=== PATIENT | female | born 1970 | race Caucasian/White ===

== ENCOUNTER 2018-12-05 02:06 | Observation (INO) ==
[2018-12-05 02:26] LABS: Basophils # 0.1 K/mcL (0.0-0.2); Basophils % 0.5 %; Eosinophils # 0.3 K/mcL (0.0-0.6); Hematocrit 34.6 % (35.3-44.9); Hemoglobin 10.9 g/dL (11.5-15.4); Immature Granulocytes % 0.8 % (0-4); Lymphocytes # 2.2 K/mcL (0.6-4.6); Lymphocytes % 16.6 %; Mean Corpuscular HGB Conc 31.5 g/dL (31.6-35.5); Mean Corpuscular Hemoglobin 27.7 pg (28.0-33.3); Mean Corpuscular Volume 87.8 fL (83.0-100.0); Mean Platelet Volume 9.7 fL (9.4-12.4); Monocytes # 0.7 K/mcL (0.0-1.3); Monocytes % 5.2 %; Neutrophils # 9.8 K/mcL (1.6-8.9); Platelet Count 288 K/mcL (140-400); Red Blood Count 3.94 M/mcL (3.82-4.97); Red Cell Distribution Width 13.4 % (11.5-14.5); Segmented Neutrophils % 74.9 %; White Blood Count 13.1 K/mcL (4.3-11.1)
[2018-12-05 02:35] LABS: Activated Partial Thrombo Time 30.4 Seconds (26.0-36.0)
[2018-12-05 02:43] LABS: BUN/Creatinine Ratio 17 (6-26); Blood Urea Nitrogen 18 mg/dL (6-20); Calcium 8.7 mg/dL (8.6-10.3); Carbon Dioxide 24 mEq/L (23-29); Chloride 104 mEq/L (98-107); Glucose 238 mg/dL (70-105); Osmolality,Calculated 288 (280-300); Potassium 4.1 mEq/L (3.5-5.1); Sodium 134 mEq/L (136-145); eGFR For African Americans > 60 (> 60); eGFR For Non-African Americans 55 (> 60)
[2018-12-05 02:44] LABS: Troponin I 0.03 ng/mL (< 0.04)
[2018-12-05] MEDS ORDERED: 0.9 % Sodium Chloride 500 ML IVC ONE (02:50)
[2018-12-05] MEDS ORDERED: 0.9 % Sodium Chloride 1,000 ML IVC SCH (03:00)
[2018-12-05] MEDS ORDERED: Dextrose Gel 15 GM/37.5 ML TUBE PO PRN ×4 (03:30→04:50)
[2018-12-05] MEDS ORDERED: *HR* Dextrose 50 % in Water (Syg) 50 ML SYRINGE IVP PRN ×2 (03:30→04:50)
[2018-12-05] MEDS ORDERED: D5% in Water 1,000 ML IVC PRN ×2 (03:30→04:50)
[2018-12-05] MEDS ORDERED: Insulin LISPRO 300 UNITS/3 ML VIAL SQ SCH ×3 (07:30→21:00)
[2018-12-05] MEDS: Aspirin Enteric Coated 81 MG Tablet PO SCH (08:02)
[2018-12-05] MEDS: Insulin LISPRO 300 UNITS/3 ML VIAL SQ SCH ×3 (08:03→16:42)
[2018-12-05 09:54] LABS: Estimated Average Glucose 217 mg/dl
[2018-12-05] MEDS: 0.9 % Sodium Chloride 1,000 ML IVC SCH ×2 (12:11→14:16)
[2018-12-05] MEDS ORDERED: *HR* Digoxin 0.5 MG/2 ML AMPUL IVP ONE (13:53)
[2018-12-05] MEDS: Metoprolol XL (24 HR) Succ 50 MG TAB.ER.24H PO SCH (15:20)
[2018-12-05] MEDS ORDERED: *HR* Rivaroxaban 10 MG TABLET PO SCH (17:00)
[2018-12-05] MEDS: *HR* Ticagrelor 90 MG TABLET PO SCH (20:01)
[2018-12-05] MEDS: Acetaminophen 325 MG TABLET PO PRN (23:42)
[2018-12-05] MEDS: Gabapentin 300 MG CAPSULE PO SCH (23:42)
[2018-12-06] MEDS: Benzonatate 100 MG CAPSULE PO PRN ×3 (04:49→14:39)
[2018-12-06 06:28] LABS: Basophils % 0.3 %; Eosinophils # 0.2 K/mcL (0.0-0.6); Eosinophils % 1.8 %; Hematocrit 30.5 % (35.3-44.9); Hemoglobin 9.6 g/dL (11.5-15.4); Immature Granulocytes % 0.5 % (0-4); Lymphocytes # 1.8 K/mcL (0.6-4.6); Lymphocytes % 15.2 %; Mean Corpuscular HGB Conc 31.5 g/dL (31.6-35.5); Mean Corpuscular Hemoglobin 27.7 pg (28.0-33.3); Mean Corpuscular Volume 87.9 fL (83.0-100.0); Monocytes # 0.5 K/mcL (0.0-1.3); Monocytes % 4.2 %; Neutrophils # 9.4 K/mcL (1.6-8.9); Platelet Count 236 K/mcL (140-400); Red Blood Count 3.47 M/mcL (3.82-4.97); Red Cell Distribution Width 13.8 % (11.5-14.5)
[2018-12-06 06:51] LABS: Calcium 8.2 mg/dL (8.6-10.3); Potassium 4.1 mEq/L (3.5-5.1)
[2018-12-06] MEDS: Insulin LISPRO 300 UNITS/3 ML VIAL SQ SCH ×2 (08:12→12:11)
[2018-12-06] MEDS: Aspirin Enteric Coated 81 MG Tablet PO SCH (08:14)
[2018-12-06] MEDS: Acetaminophen 325 MG TABLET PO PRN (08:14)
[2018-12-06] MEDS: Metoprolol XL (24 HR) Succ 50 MG TAB.ER.24H PO SCH (08:15)
[2018-12-06] MEDS ORDERED: *HR* Dextrose 50 % in Water (Vial) 50 ML VIAL IVP PRN (09:15)
[2018-12-06 09:44] LABS: Folate 4.4 ng/mL (3.0-16.0)
[2018-12-06] MEDS: Gabapentin 300 MG CAPSULE PO SCH (09:54)
[2018-12-06] MEDS: *HR* Ticagrelor 90 MG TABLET PO SCH (09:54)
[2018-12-06 11:41] VITALS: BP 112/54
[2018-12-06] MEDS ORDERED: Cyanocobalamin (B-12) 1,000 MCG/ML VIAL IM ONE (14:26)
== END 2018-12-06 15:15 | disposition home or self-care (01) ==
LOC: INPPIK 02:06 → EMEROOPIK 02:06 → INPPIK 04:35
PROVIDERS: ADMIT Internal Medicine; ATTEND Internal Medicine

== ENCOUNTER 2019-12-07 10:40 | Observation (INO) ==
[2019-12-07] MEDS ORDERED: Ondansetron 4 MG/2 ML VIAL IVP ONE (10:43)
[2019-12-07] MEDS ORDERED: Nitroglycerin 1 INCH/GM PACKET TP ONE (10:43)
[2019-12-07] MEDS ORDERED: 0.9 % Sodium Chloride 500 ML IVC ONE (10:43)
[2019-12-07] MEDS ORDERED: Aspirin 81 MG TAB.CHEW PO ONE (10:43)
[2019-12-07] MEDS ORDERED: *HR* LORazepam 2 MG/ML VIAL IVP ONE (10:44)
[2019-12-07 10:59] LABS: Basophils # 0.1 K/mcL (0.0-0.2); Basophils % 0.5 %; Eosinophils # 0.1 K/mcL (0.0-0.6); Eosinophils % 0.8 %; Hematocrit 29.6 % (35.3-44.9); Hemoglobin 9.4 g/dL (11.5-15.4); Immature Granulocytes % 0.3 % (0-4); Lymphocytes # 1.1 K/mcL (0.6-4.6); Lymphocytes % 11.2 %; Mean Corpuscular HGB Conc 31.8 g/dL (31.6-35.5); Mean Corpuscular Hemoglobin 29.3 pg (28.0-33.3); Mean Corpuscular Volume 92.2 fL (83.0-100.0); Mean Platelet Volume 9.3 fL (9.4-12.4); Monocytes # 0.5 K/mcL (0.0-1.3); Neutrophils # 7.8 K/mcL (1.6-8.9); Platelet Count 303 K/mcL (140-400); Red Blood Count 3.21 M/mcL (3.82-4.97); Red Cell Distribution Width 13.5 % (11.5-14.5); Segmented Neutrophils % 82.2 %; White Blood Count 9.5 K/mcL (4.3-11.1)
[2019-12-07 11:15] LABS: Albumin 2.7 g/dL (3.5-5.7); Albumin/Globulin Ratio 0.8 (1.1-2.2); BUN/Creatinine Ratio 13 (6-26); Bilirubin,Indirect 0.2 mg/dL (0.0-1.0); Bilirubin,Total 0.2 mg/dL (0.3-1.0); Blood Urea Nitrogen 23 mg/dL (6-20); Calcium 8.4 mg/dL (8.6-10.3); Carbon Dioxide 24 mEq/L (23-29); Chloride 108 mEq/L (98-107); Globulin 3.5 g/dL (2.4-3.5); Glucose 195 mg/dL (70-105); Osmolality,Calculated 297 (280-300); Potassium 4.3 mEq/L (3.5-5.1); Sodium 139 mEq/L (136-145); Total Protein 6.2 g/dL (6.4-8.9); eGFR For African Americans 38 (> 60); eGFR For Non-African Americans 32 (> 60)
[2019-12-07 11:16] LABS: Troponin I < 0.03 ng/mL (< 0.04)
[2019-12-07 11:17] LABS: Activated Partial Thrombo Time 27.3 Seconds (26.0-36.0)
[2019-12-07 11:18] LABS: Prothrombin Time 11.8 Seconds (9.4-12.1)
[2019-12-07] MEDS ORDERED: Ondansetron ODT 4 MG TAB.RAPDIS SL PRN (11:59)
[2019-12-07] MEDS ORDERED: Acetaminophen 325 MG TABLET PO PRN (11:59)
[2019-12-07] MEDS ORDERED: Naloxone 0.4 MG/ML INJ IVP PRN (11:59)
[2019-12-07] MEDS ORDERED: Perflutren Lipid Microsphere 1.3 ML in 0.9 % Sodium Chloride 8.7 ML IVP PRN (15:00)
[2019-12-07] MEDS ORDERED: Dextrose Gel 15 GM/37.5 ML TUBE PO PRN ×2 (15:44)
[2019-12-07] MEDS ORDERED: *HR* Dextrose 50 % in Water (Vial) 50 ML VIAL IVP PRN (15:44)
[2019-12-07] MEDS ORDERED: D5% in Water 1,000 ML IVC PRN (15:44)
[2019-12-07] MEDS: *HR* Enoxaparin 40 MG/0.4 ML SYRINGE SQ SCH (18:47)
[2019-12-07] MEDS: Insulin LISPRO 300 UNITS/3 ML VIAL SQ SCH (18:47)
[2019-12-07 21:10] LABS: Estimated Average Glucose 157 mg/dl
[2019-12-07 23:32] LABS: Amphetamine Screen,Urine Negative ng/mL (Cutoff=1000); Barbiturate Screen,Urine Negative ng/mL (Cutoff=200); Benzodiazepines Screen,Urine Negative ng/mL (Cutoff=200); Cannabinoid Screen,Urine Negative ng/mL (Cutoff = 50); Cocaine Screen,Urine Negative ng/mL (Cutoff= 300); Opiate Screen,Urine Negative ng/mL (Cutoff=300); Phencyclidine Screen,Urine Negative ng/mL (Cutoff=25)
[2019-12-08 00:37] LABS: Hematocrit 25.9 % (35.3-44.9); Hemoglobin 8.4 g/dL (11.5-15.4); Mean Corpuscular HGB Conc 32.4 g/dL (31.6-35.5); Mean Corpuscular Hemoglobin 29.7 pg (28.0-33.3); Mean Corpuscular Volume 91.5 fL (83.0-100.0); Mean Platelet Volume 9.4 fL (9.4-12.4); Platelet Count 258 K/mcL (140-400); Red Blood Count 2.83 M/mcL (3.82-4.97); Red Cell Distribution Width 13.5 % (11.5-14.5); White Blood Count 8.2 K/mcL (4.3-11.1)
[2019-12-08 00:56] LABS: Calcium 8.1 mg/dL (8.6-10.3); Potassium 4.4 mEq/L (3.5-5.1)
[2019-12-08] MEDS: *HR* Enoxaparin 40 MG/0.4 ML SYRINGE SQ SCH (05:48)
[2019-12-08 06:28] VITALS: BP 136/75
[2019-12-08] MEDS: Insulin LISPRO 300 UNITS/3 ML VIAL SQ SCH ×2 (07:45→12:07)
[2019-12-08] MEDS ORDERED: Furosemide 40 MG TABLET PO ONE (10:30)
[2019-12-08] MEDS ORDERED: Nicotine 14 MG PATCH.TD24 TD SCH (11:08)
[2019-12-08] MEDS ORDERED: Metoprolol XL (24 HR) Succ 50 MG TAB.ER.24H PO SCH (11:15)
[2019-12-08] MEDS ORDERED: Aspirin Enteric Coated 81 MG Tablet PO SCH (11:15)
[2019-12-08] MEDS ORDERED: Budesonide/Formoterol 80/4.5 1 PUFF INH IH SCH (11:15)
[2019-12-08] MEDS ORDERED: Loratadine 10 MG TABLET PO SCH (11:15)
[2019-12-08] MEDS ORDERED: *HR* Glimepiride 2 MG TABLET PO SCH (11:15)
[2019-12-08] MEDS ORDERED: Gabapentin 300 MG CAPSULE PO SCH (15:00)
[2019-12-09] MEDS ORDERED: Furosemide 20 MG TABLET PO SCH (09:00)
== END 2019-12-08 15:45 | disposition home or self-care (01) ==
LOC: INPPIK 10:40 → EMEROOPIK 10:40 → INPPIK 13:39
PROVIDERS: ADMIT Family Medicine; ATTEND Family Medicine

== ENCOUNTER 2020-01-02 17:16 | Observation (INO) ==
[2020-01-02] MEDS ORDERED: *HR* Dextrose 50 % in Water (Vial) 50 ML VIAL ONE (17:23)
[2020-01-02] MEDS ORDERED: *HR* Dextrose 50 % in Water (Syg) 50 ML SYRINGE IVP ONE (17:24)
[2020-01-02 19:12] LABS: Basophils % 0.1 %; Eosinophils % 0.2 %; Hemoglobin 11.4 g/dL (11.5-15.4); Immature Granulocytes % 0.3 % (0-4); Lymphocytes # 0.5 K/mcL (0.6-4.6); Lymphocytes % 3.3 %; Mean Corpuscular HGB Conc 32.6 g/dL (31.6-35.5); Mean Corpuscular Hemoglobin 29.5 pg (28.0-33.3); Mean Corpuscular Volume 90.7 fL (83.0-100.0); Mean Platelet Volume 10.3 fL (9.4-12.4); Monocytes # 0.6 K/mcL (0.0-1.3); Monocytes % 3.6 %; Neutrophils # 14.5 K/mcL (1.6-8.9); Platelet Count 365 K/mcL (140-400); Red Blood Count 3.86 M/mcL (3.82-4.97); Red Cell Distribution Width 12.8 % (11.5-14.5); Segmented Neutrophils % 92.5 %; White Blood Count 15.7 K/mcL (4.3-11.1)
[2020-01-02 19:14] LABS: Bilirubin,Urine Negative (Negative); Blood,Urine Moderate (Negative); Clarity,Urine Clear (Clear); Color,Urine Yellow (Yellow); Glucose,Urine (UA) Normal (Normal); Ketones,Urine Negative (Negative); Leukocyte Esterase,Urine Negative (Negative); Nitrite,Urine Negative (Negative); Protein,Urine >=300 mg/dL (Neg-Trace); Specific Gravity,Urine 1.025 (1.010-1.025); Urobilinogen,Urine Normal (Normal)
[2020-01-02 19:30] LABS: RBC,Urine 15-30 per hpf (0-3)
[2020-01-02] MEDS ORDERED: D10% in Water 500 ML IVC SCH (19:30)
[2020-01-02 19:32] LABS: Bacteria,Urine Few per hpf (None-Few); Squamous Epithelial Cell,Urine Moderate per hpf (None-Few); WBC,Urine 0-3 per hpf (0-3)
[2020-01-02 19:32] LABS: Calcium 8.4 mg/dL (8.6-10.3); Potassium 4.9 mEq/L (3.5-5.1)
[2020-01-02] MEDS ORDERED: Nitroglycerin 0.4 MG TAB.SUBL SL PRN (21:27)
[2020-01-02] MEDS ORDERED: Naloxone 0.4 MG/ML INJ IVP PRN (21:27)
[2020-01-02] MEDS: D10% in Water 500 ML IVC SCH (22:59)
[2020-01-03] MEDS: D10% in Water 500 ML IVC SCH (01:31)
[2020-01-03 08:04] LABS: Hematocrit 29.5 % (35.3-44.9); Hemoglobin 9.5 g/dL (11.5-15.4); Mean Corpuscular HGB Conc 32.2 g/dL (31.6-35.5); Mean Corpuscular Hemoglobin 29.2 pg (28.0-33.3); Mean Corpuscular Volume 90.8 fL (83.0-100.0); Platelet Count 279 K/mcL (140-400); Red Blood Count 3.25 M/mcL (3.82-4.97); Red Cell Distribution Width 12.8 % (11.5-14.5); White Blood Count 9.9 K/mcL (4.3-11.1)
[2020-01-03 08:20] LABS: Calcium 8.1 mg/dL (8.6-10.3); Potassium 4.6 mEq/L (3.5-5.1)
[2020-01-03] MEDS: Aspirin Enteric Coated 81 MG Tablet PO SCH (09:08)
[2020-01-03] MEDS: Metoprolol XL (24 HR) Succ 50 MG TAB.ER.24H PO SCH (09:08)
[2020-01-03] MEDS: Isosorbide MONOnitrate (24 HR) 30 MG TAB.ER.24H PO SCH (09:08)
[2020-01-03] MEDS: Budesonide/Formoterol 80/4.5 1 PUFF INH IH SCH (11:22)
[2020-01-03] MEDS ORDERED: *HR* Rivaroxaban 15 MG TABLET PO SCH (17:00)
[2020-01-04 08:23] VITALS: BP 135/70
[2020-01-04] MEDS: Metoprolol XL (24 HR) Succ 50 MG TAB.ER.24H PO SCH (08:27)
[2020-01-04] MEDS: Aspirin Enteric Coated 81 MG Tablet PO SCH (08:27)
[2020-01-04] MEDS: Isosorbide MONOnitrate (24 HR) 30 MG TAB.ER.24H PO SCH (08:27)
[2020-01-04] MEDS: Budesonide/Formoterol 80/4.5 1 PUFF INH IH SCH (10:09)
== END 2020-01-04 10:00 | disposition home or self-care (01) ==
LOC: EMEROOPIK 17:16 → INPPIK 17:16
PROVIDERS: ADMIT Family Medicine; ATTEND Family Medicine